=== PATIENT | female | born 1980 | race Caucasian/White ===

== ENCOUNTER 2016-08-14 10:01 | Emergency (ER) | payer OTHER ==
[~2016-08-14] VITALS: Wt 91.0 kg
[~2016-08-14 10:01] MED LIST: BENZ100C70 PO; HYD25 PO; LORA-441 PO; PHEN177S43 MT; PROM5SYR2 PO
[2016-08-14] MEDS ORDERED: LIDOCAINE/MYLANTA 40 ML BTL PO STA (15:05)
[2016-08-14] MEDS ORDERED: FAMOTIDINE 20 MG TAB PO STA (15:05)
[2016-08-14] MEDS ORDERED: BELLADONNA/PHENOBARBITAL TAB PO STA (15:05)
[2016-08-14] MEDS ORDERED: MAG355OR14 PO (15:08)
[2016-08-14] MEDS ORDERED: ALPR0.5T PO (15:08)
[2016-08-14] MEDS ORDERED: NAPR-260 PO (15:08)
[2016-08-14] MEDS ORDERED: FAMO40TA52 PO (15:08)
--- NOTE | 2016-08-14 15:17 | ERD ---
ER Documentation Chief Complaint Date/Time DATE: 08/14/16 TIME: 15:16 Chief Complaint chest pain for 1 wwwk. and radiating to left arm. feels pressure. nausea HPI 28-year-old woman presents with left-sided chest pain constant daily for over 1 week and similar to multiple previous episodes. This pain is recurrent at least once a month and usually associated with anxiety, she states recently she has had increased belching and burning in the epigastrium as well. She has a history of anxiety and recurrent chest pain, she has had no weakness or loss of consciousness, no blood per rectum or melena, no shortness of breath, no trauma , no fevers or chills, no weight loss. ROS All systems reviewed and are negative except as per history of present illness. Medications Home Meds Active Scripts Alprazolam* (Xanax*) 0.5 Mg Tab, 0.5 MG PO TID for ANXIETY, #20 TAB Prov:YOHANA CADE MD 08/14/16 Famotidine* (Famotidine*) 40 Mg Tablet, 40 MG PO HS, #30 TAB Prov:YOHANA CADE MD 08/14/16 Mag Hydrox/Al Hydrox/Simeth (Maalox Advanced Suspension) 355 Ml Oral.susp, 2 TSP PO TID, #24 OZ Prov:YOHANA CADE MD 08/14/16 Naproxen* (Naprosyn*) 500 Mg Tablet, 500 MG PO BID Y for PAIN AND/OR INFLAMMATION, #30 TAB Prov:YOHANA CADE MD 08/14/16 Promethazine HCl/Codeine (Prometh-Codein 6.25-10 mg/5 ml) 5 Ml Syrup, 5 ML PO QHS, #90 ML Prov:CHITO CRISTINA PA-C 05/01/16 Discontinued Reported Medications Hydrochlorothiazide* (Hydrochlorothiazide*) 25 Mg Tab, 25 MG PO DAILY, TAB 05/11/15 Discontinued Scripts Benzonatate* (Tessalon Perle*) 100 Mg Capsule, 100 MG PO Q8H Y for COUGH, #20 CAP Prov:CHITO CRISTINA PA-C 05/01/16 Phenol* (Chloraseptic* [place]) 177 Ml [place].pump, 2 SPRAY MT Q2H Y for SORE THROAT, #1 BOTTLE Prov:CHITO CRISTINA PA-C 05/01/16 Lorazepam* (Ativan*) 0.5 Mg Tablet, 0.5 MG PO Q8H Y for ANXIETY, #10 TAB Prov:ARIANA LEVIN DO 05/11/15 Allergies Allergies: Coded Allergies: sulfamethoxazole (Verified Allergy, Unknown, 08/14/16) trimethoprim (Verified Allergy, Unknown, 08/14/16) PMhx/Soc Anxiety, recurrent chest pain History of Surgery: Yes (GALLSTONES) Anesthesia Reaction: No Hx Neurological Disorder: No Hx Respiratory Disorders: No Hx Cardiac Disorders: No Hx Psychiatric Problems: No Hx Miscellaneous Medical Probl: No Hx Alcohol Use: No Hx Substance Use: No Hx Tobacco Use: No Smoking Status: Never smoker FmHx Family History: No diabetes Physical Exam Vitals Vital Signs Date Time Temp Pulse Resp B/P Pulse Ox O2 Delivery O2 Flow Rate FiO2 08/14/16 15:31 98.6 81 20 149/99 100 08/14/16 10:05 98.4 95 20 155/105 100 Physical Exam GENERAL: Well-developed, well-nourished, well-hydrated, anxious HEENT: Moist mucous membranes, pink conjunctiva, no cervical spine tenderness or step-off deformities, no goiter, no jaundice or icterus, extraocular movements intact without pain. No submandibular induration, and no pharyngeal erythema NEURO: Alert and oriented 3, cranial nerves II through XII intact bilaterally, pupils equal round reactive to light, no focal deficits or facial asymmetry, sensation intact distally Strength 5/5 in upper and lower extremities bilaterally CARDIAC: Regular rate and rhythm, no murmurs rubs or gallops LUNGS: Clear bilaterally no wheezing crackles or stridor ABDOMEN: Soft nontender, no guarding, no rigidity, no rebound, no psoas sign no obturator sign. Normoactive bowel sounds SKIN: Warm and dry to touch, no abrasions, contusions, or hematomas, no lacerations, no ecchymosis, no target lesions, and without ulcers EXTREMITIES: No clubbing cyanosis or edema, calves are bilaterally symmetrical, no Homans sign, no popliteal cord sign. Distal pulses equal and bilateral PSYCH: Anxious Results 24 hrs Current Medications Medications (Trade) Dose Ordered Sig/Jos Route PRN Reason Start Time Stop Time Status Last Admin Dose Admin Alprazolam (Xanax) 0.5 mg ONCE ONCE PO 08/14/16 15:30 08/14/16 15:31 DC Famotidine (Pepcid) 40 mg ONCE STAT PO 08/14/16 15:05 08/14/16 15:07 DC Miscellaneous Medication (Gi Cocktail (2)) 40 ml ONCE STAT PO 08/14/16 15:05 08/14/16 15:07 DC Belladonna/ Phenobarbital () 2 tab ONCE STAT PO 08/14/16 15:05 08/14/16 15:07 DC Ibuprofen (Motrin) 600 mg ONCE ONCE PO 08/14/16 15:30 2 15:31 DC Procedures/MDM EKG performed, read by me revealed a normal sinus rhythm at 88 bpm, left axis deviation, narrow QRS complex, no concerning ST elevations or depressions noted. I had a long discussion with the patient regarding her presentation and symptomatology, I also reviewed previous workups in the emergency department. I ordered multiple different medications given her symptoms although she refused all medications. Differential diagnoses considered, included but not limited to acute coronary syndrome, pulmonary embolism, aortic dissection, abdominal aortic aneurysm, sepsis, stroke, meningitis, encephalitis, pneumonia, appendicitis, cholecystitis , bowel obstruction, pyelonephritis, nephrolithiasis, cystitis, as well as metabolic, hematologic, and electrolyte abnormalities. As well as abscess, cellulitis, fractures, and dislocations. Patient feels much better at this time, and vital signs are normal, symptoms have improved. I did give strict instructions to return to the ED if symptoms continue or worsen, patient will otherwise follow-up with primary care physician. Patient understood instructions and agreed to plan. Departure Diagnosis: Primary Impression: Indigestion Additional Impressions: Anxiety attack Chest pain Chest pain type: unspecified Qualified Code: R07.9 - Chest pain, unspecified type Condition: Good Patient Instructions: Anxiety Reaction, Chest Pain, Uncertain Cause, Gerd ( Adult) YOHANA CADE MD Aug 14, 2016 15:17
[2016-08-14] MEDS ORDERED: IBUPROFEN 600 MG TAB PO ONE (15:30)
[2016-08-14] MEDS ORDERED: ALPRAZOLAM 0.25 MG TAB PO ONE (15:30)
[2016-08-14 15:31] VITALS: BP 149/99; PULSE 81; RESP 20; TEMP 98.6
== END 2016-08-14 15:32 | disposition home or self-care (01) ==
LOC: E/R 10:01
DX: K30 Functional dyspepsia (principal); R40.2142 Coma scale, eyes open, spontaneous, at arrival to emergency department; F41.9 Anxiety disorder, unspecified; R40.2252 Coma scale, best verbal response, oriented, at arrival to emergency department; R40.2362 Coma scale, best motor response, obeys commands, at arrival to emergency department
CPT/HCPCS: 93005; Z7502